=== PATIENT | male | born 1935 | race Hispanic/Latino ===

== ENCOUNTER 2017-10-23 06:12 | Day surgery (SDC) | payer MEDICARE, OTHER ==
[2017-10-23] MEDS ORDERED: NACL 0.9% 500 ML 500 ML IV SCH (07:00)
[2017-10-23 07:10] LABS: Basophils % (Auto) 0.8 % (0.0-1.8); Eosinophils # (Auto) 0.3 K/mm3 (0.0-0.4); Eosinophils % (Auto) 5.8 % (0.0-4.3); Hematocrit 36.6 % (35.5-45.6); Lymphocytes # (Auto) 1.2 K/mm3 (1.2-5.4); Lymphocytes % (Auto) 22.4 % (13.4-35.0); Mean Corpuscular HGB Conc 33 % (32-34); Mean Corpuscular Hemoglobin 30 pg (28-32); Mean Corpuscular Volume 90 fl (84-94); Monocytes # (Auto) 0.4 K/mm3 (0.0-0.8); Monocytes % (Auto) 8.4 % (0.0-7.3); Platelet Count 245 K/mm3 (140-440); Red Blood Count 4.07 M/mm3 (3.65-5.03); Red Cell Distribution Width 18.4 % (13.2-15.2)
[2017-10-23 07:25] LABS: INR 0.93 (0.87-1.13)
[2017-10-23] MEDS ORDERED: HEPARIN/NS 5000 UNIT/500ML(CATH LAB) 1,000 ML IR ONE (08:17)
[2017-10-23] MEDS ORDERED: SUBLIMAZE ONE (08:17)
[2017-10-23] MEDS ORDERED: VERSED ONE (08:17)
[2017-10-23] MEDS ORDERED: XYLOCAINE 1% 20 mL ONE (08:17)
[2017-10-23] MEDS ORDERED: HEPARIN 10,000 UNITS/10 ML ONE (08:35)
[2017-10-23] MEDS ORDERED: CALAN ONE (08:35)
[2017-10-23] MEDS ORDERED: NITROGLYCERIN SYRINGE 3 ML ONE (08:35)
--- NOTE | 2017-10-23 10:03 | Cardiac Catherization Report ---
LEFT HEART CATHETERIZATION CLINICAL INFORMATION: This is an 81-year-old gentleman with history of colon cancer, has history of cad, htn, chol and dm needing surgery, had a cardiac pet revealed moderate ischemia in the anterior apical and lateral region. Has hypertension, diabetes, cholesterol with history of PE, he is here for left heart catheterization. Moderate sedation under supervision had 0.5 mg of Versed and 25 mcg of fentanyl. A start time was 9:00 a.m. and end time was 9:20 a.m., 20 minutes of total supervised moderate sedation was done. PROCEDURE DETAILS: Left heart catheterization performed via the right radial artery, sterile technique, local anesthesia, 6-Yemeni radial sheath inserted. Normal Wily's test. FINDINGS: There is moderate tortuosity of the right subclavian and innominate and engaged the left system with a JL 3.5 catheter. FINDINGS: Calcification of the left system noted. Left main large and patent. Then LAD is a large caliber vessel, proximal stent patent with mild in-stent restenosis. Rest of the LAD is fine. Diagonal 1, diagonal 2 are small caliber vessels patent. Circumflex is a large caliber vessel, proximal is patent, mid stent is patent, going to OM1 has an 80% lesion of a small to medium caliber OM1. RCA is a medium caliber vessel, proximal 30-40% moderate tortuosity, distal has a focal 80% lesion going to a [id number] caliber PDA, LV gram done in TRISTANIAN and BRAN view shows normal LV function, EF 55-60%, LVEDP 21 mmHg, LV is 145 mmHg, aortic is 146/66. No significant gradient across the aortic valve on pullback. A 5-Yemeni catheters were taken over a guidewire, a 6-Yemeni radial sheath was discontinued. Radial dressing applied. No hematoma, no bleeding. SUMMARY: Left main patent, LAD proximal stent patent, circumflex patent, but OM1 ostial has an 80% lesion, RCA proximal 30-40% with distal 80%, in view of distal vessels, the patient will be a moderate to high risk cardiovascular patient for going for moderate risk cardiovascular procedure. We will hold off angioplasty in view of patent left main and LAD. Treat this medically at this time prior to surgery. Discussed this in detail with the patient and family and surgeon. [facility]# [id number] NICK/KELLY [place]
--- NOTE | 2017-10-23 10:45 | Short Stay Summary ---
Short Stay Documentation Date of service: 10/23/17 - History H&P: obtained from office - Allergies and Medications Current Medications: Allergies No Known Allergies Allergy (Verified 12/29/13 15:44) Home Medications Medication Instructions Recorded Confirmed Last Taken Type Apixaban [Eliquis] 2.5 mg PO BID 10/23/17 10/23/17 10/22/17 History Ascorbic Acid [Vitamin C] 1,000 mg PO QAM 10/23/17 10/23/17 10/23/17 05:00 History Aspirin 81 mg PO DAILY #90 tab.chew 10/23/17 Unknown Rx AtorvaSTATin [Lipitor] 20 mg PO QDAY 10/23/17 10/23/17 10/23/17 05:00 History Bicalutamide [Casodex] 50 mg PO HS 10/23/17 10/23/17 10/22/17 History Black Cohosh Root Extract [Black 40 mg PO BID 10/23/17 10/23/17 10/23/17 05:00 History Cohosh] Calcium Polycarbophil [Fiber 625 mg PO QHS 10/23/17 10/23/17 10/22/17 History Therapy] Dapagliflozin Propanediol [Farxiga] 10 mg PO QAM 10/23/17 10/23/17 10/23/17 05: 00 History Docusate Sodium [Stool Softener] 3 tab PO QHS 10/23/17 10/23/17 10/22/17 History Ergocalciferol (Vitamin D2) 2,000 unit PO QAM 10/23/17 10/23/17 10/23/17 05:00 History [Vitamin D2] Fenofibrate 160 mg PO QAM 10/23/17 10/23/17 10/23/17 05:00 History Ferrous Sulfate [Iron] 1 tab PO QHS 10/23/17 10/23/17 10/22/17 History Gabapentin [Neurontin] 400 mg PO BID 10/23/17 10/23/17 10/22/17 History Glimepiride [Amaryl] 4 mg PO BID 10/23/17 10/23/17 10/22/17 History Glucosamine/MSM/Chondroitin A 1 each PO QAM 10/23/17 10/23/17 10/23/17 05:00 History [Glucosamine Chondroit MSM Tab] ISOSORBIDE MONOnitrate [Imdur ER] 30 mg PO DAILY #90 tab.er.24h 10/23/17 Unknown Rx Krill/[place]-3/Dha/Epa/Lipids 1 each PO BID 10/23/17 10/23/17 10/23/17 05:00 History [Krill Oil 350 mg Softgel] Lisinopril [Zestril] 40 mg PO QAM 10/23/17 10/23/17 10/23/17 05:00 History Metformin HCl [Glucophage] 1,000 mg PO BID 10/23/17 10/23/17 10/23/17 05:00 History Metoprolol [Lopressor TAB] 50 mg PO QAM 10/23/17 10/23/17 10/23/17 05:00 History Multivit-Min/FA/Lycopen/Lutein 1 tab PO QAM 10/23/17 10/23/17 10/23/17 05:00 History [Centrum Silver Tablet] Sitagliptin Phosphate [Januvia] 100 mg PO QAM 10/23/17 10/23/17 10/23/17 05:00 History Ubidecarenone [Coq-10] 100 mg PO HS 10/23/17 10/23/17 10/22/17 History Vit C/Vit E/Lutein/Min/[place]-3 1 each PO QHS 10/23/17 10/23/17 10/22/17 History [Ocuvite Softgel] Active Medications Sodium Chloride (Nacl 0.9% 500 Ml) 500 mls @ 50 mls/hr IV DIRECT CONCHA Stop: 10/23/17 16:59 Last Admin: 10/23/17 07:30 Dose: 50 mls/hr - Brief post op/procedure progress note Date of procedure: 10/23/17 Pre-op diagnosis: abnl stress Post-op diagnosis: same Procedure: see report Anesthesia: local Estimated blood loss: none Pathology: none - Disposition Condition at discharge: Good Disposition: [id number] TO HOME OR SELFCARE - Discharge Diagnoses (1) CAD (coronary artery disease) Status: Acute Qualifiers: Coronary Disease-Associated Artery/Lesion type: [place] artery [place] vs. transplanted heart: [place] heart Associated angina: with stable angina Qualified Code(s): I25.118 - Atherosclerotic heart disease of [place] coronary artery with other forms of angina pectoris (2) Hypertension Status: Chronic Qualifiers: Hypertension type: essential hypertension Qualified Code(s): I10 - Essential (primary) hypertension (3) Hyperlipemia, mixed Status: Chronic (4) Diabetes mellitus Status: Chronic Qualifiers: Diabetes mellitus type: type 2 Diabetes mellitus tank terminal gauger insulin use: with tank terminal gauger use Diabetes mellitus complication status: with circulatory complication Diabetes mellitus complication detail: with other circulatory complications Qualified Code(s): E11.59 - Type 2 diabetes mellitus with other circulatory complications; Z79.4 - alf (current) use of insulin (5) Colon cancer Status: Acute Qualifiers: Colon location: unspecified part of colon Qualified Code(s): C18.9 - Malignant neoplasm of colon, unspecified Short Stay Discharge Plan Activity: advance as tolerated Diet: low fat, low cholesterol, low salt Wound: keep clean and dry Special Instructions: hold Metformin (for two days) Follow up with: BUBBA TAVERAS MD [Primary Care Provider] - 7 Days Prescriptions: Aspirin 81 mg PO DAILY #90 tab.chew ISOSORBIDE MONOnitrate [Imdur ER] 30 mg PO DAILY #90 tab.er.24h
[2017-10-23 12:59] VITALS: BP 134/62
== END 2017-10-23 13:00 | disposition home or self-care (01) ==
LOC: CATHLABREC 06:12
PROVIDERS: ATTEND Internal Medicine
DX: I25.10 Atherosclerotic heart disease of native coronary artery without angina pectoris (principal); I10 Essential (primary) hypertension; I25.2 Old myocardial infarction; I27.20 Pulmonary hypertension, unspecified; E11.9 Type 2 diabetes mellitus without complications; E78.00 Pure hypercholesterolemia, unspecified; Z85.46 Personal history of malignant neoplasm of prostate; Z86.711 Personal history of pulmonary embolism; Z79.01 Long term (current) use of anticoagulants; Z86.718 Personal history of other venous thrombosis and embolism
CPT/HCPCS: 36415; 80048; 85025; 85610; 85730; 93005; 93010; 93458; C1894; J1644; J2250; J3010; J7040; Q9967